=== PATIENT | male | born 1960 | race Caucasian/White ===

== ENCOUNTER → 2016-09-30 | Outpatient (CLI) | payer OTHER, MEDICAID ==
[2014-12-12 04:53] VITALS: BP 84/53
--- NOTE | 2016-09-30 12:36 | US ---
HISTORY: Abnormal liver function tests Study: Right upper quadrant ultrasound Comparison: None Technique: Multiple grayscale sonographic images were obtained. Findings: The liver was normal in size and configuration and without cysts, masses, or biliary ductal dilatati on. Gallstones are present within the gallbladder. Gallbladder wall thickness was normal. The common duct measured 4.4 millimeters. The right kidney measured 8.9 x 6.7 by 5.1 centimeters and demonstra riri no solid masses, hydronephrosis, stones, or perinephric fluid collections. The head and body of the pancreas appeared normal. The tail was obscured by overlying bowel gas. IMPRESSION: Cholelithiasis without evidence for cholecystitis Reported By:
== END ==
LOC: RAD 09:30
PROVIDERS: ATTEND Nurse Practitioner Family
DX: R94.5 Abnormal results of liver function studies (principal)
CPT/HCPCS: 76705

== ENCOUNTER → 2017-05-25 | Outpatient (CLI) | payer OTHER, MEDICAID ==
[2014-12-12 04:53] VITALS: BP 84/53
--- NOTE | 2017-05-25 15:34 | RAD ---
Examination: Left knee, two views History: Lower leg pain Findings: AP and lateral views demonstrate narrowing of medial greater than lateral compartments. No fracture or bone destruction. There is a synovial effusion. Impression: Osteoarthritis; synovial effusion. Reported By:
--- NOTE | 2017-05-25 15:39 | RAD ---
History: Chronic lower leg pain Study: Left ankle two views Findings: AP view of the left ankle includes most of the leg with lateral view of the ankle also prov ided. There is normal alignment at the ankle joint. There is mild irregularity of the distal fibula w ith no acute fractures seen. There is mild soft tissue swelling laterally. Impression: Soft tissue swelling with no acute osseous abnormality. Reported By:
--- NOTE | 2017-05-25 15:41 | RAD ---
History: Chronic neck pain Study: Cervical spine two views Findings: AP, lateral, odontoid and swimmer's views of the cervical spine are obtained. Lateral views only demonstrate the upper 4 vertebral bodies with an inadequate swimmer's view present. There is no prevertebral soft tissue swelling. There are mild degenerative changes at the odontoid axial joint. The maxilla is edentulous. Impression: Incomplete evaluation of the lower cervical spine. Reported By:
== END ==
LOC: RAD 13:25
PROVIDERS: ATTEND Nurse Practitioner Family
DX: M25.562 Pain in left knee (principal); W19.XXXA Unspecified fall, initial encounter; M79.89 Other specified soft tissue disorders; M17.12 Unilateral primary osteoarthritis, left knee
CPT/HCPCS: 72040; 73560; 73590

== ENCOUNTER 2018-07-31 12:20 | Observation (INO) ==
--- NOTE | 2018-07-31 13:12 | CT ---
CT of the head without contrast Indication: Weakness Comparison: CT of the head done October 15, 2017 Technique: 5 mm axial images through the brain was obtained with coronal and sagittal reformats generated from the original data set. Findings: There is no intracranial hemorrhage, parenchymal changes to suggest recent ischemia. There is mild microangiopathy. The ventricles and extra-axial spaces are normal. The globes, sella posterior fossa are unremarkable. The visualized paranasal sinuses and mastoid air cells are clear bilaterally. Conclusion: No acute intracranial process. Mild microangiopathy. Reported By:
[2018-07-31 13:34] LABS: BASOPHILS # (AUTO) 0.1 X10^3/uL (0.0-0.1); EOSINOPHILS # (AUTO) 0.4 x10^3/uL (0.0-0.2); EOSINOPHILS % (AUTO) 5.1 % (0.9-2.9); HEMATOCRIT 35.8 % (42.0-54.0); LYMPHOCYTES # (AUTO) 2.1 X10^3/uL (1.3-2.9); LYMPHOCYTES % (AUTO) 24.6 % (21.0-51.0); MEAN CORPUSCULAR HEMOGLOBIN 31.4 pg (27.0-34.0); MEAN CORPUSCULAR HGB CONC 33.6 g/dL (33.0-35.0); MEAN CORPUSCULAR VOLUME 93.4 fL (80.0-100.0); MEAN PLATELET VOLUME 6.8 fL (7.4-11.0); MONOCYTES # (AUTO) 0.6 x10^3/uL (0.3-0.8); MONOCYTES % (AUTO) 7.1 % (0.0-13.0); NEUTROPHILS # (AUTO) 5.4 x10^3/uL (2.2-4.8); NEUTROPHILS % (AUTO) 62.2 % (42.0-75.0); PLATELET COUNT 314 X10^3/uL (150.0-450.0); RED BLOOD COUNT 3.83 X10^6/uL (4.7-6.0); RED CELL DISTRIBUTION WIDTH 14.4 % (11.6-16.5); WHITE BLOOD COUNT 8.7 X10^3/uL (3.6-10.0)
--- NOTE | 2018-07-31 13:40 | DR.DIZZY ---
HPI Time seen Time Seen by Provider: 07/31/18 13:21 PCP Primary Care Physician: ROLY SHAH Complaint Chief Complaint Doctor Comments: patient admits to falling at 1600 on yesterday upon getting up he noticed that he was weak on his left side. Today he came in for his weakness and evaluation Chief Complaint:: PT STATES, "i HAD A STROKE AROUND 4PM YESTERDAY" PT STATES THAT HE BECAME SUDDENLY WEAK YESTERDAY AFTERNOON FELL AND HIT HIS HEAD. SINCE THEN HE C/O LEFT SIDED WEAKNESS. Source History Provided: Patient Mode of Arrival Mode of Arrival: Ambulatory Timing Onset of Chief Complaint: 07/31/18 Context Stroke Symptoms: None PMH PMH Past Medical History: Yes Past Medical History: CVA and [place] Past Medical History Comment: AFIB, RSDS Past Surgical History: Yes Past Surgical History Comment: RIGHT PAROTID GLAND REMOVED Family History History of Family Medical Conditions: No Social History Does patient currently use any type of tobacco product: No Have you used tobacco products in the last 12 months: No Type of Tobacco Use: None Does any household member use tobacco: No Alcohol Use: None Do you use any recreational Drugs:: No Lives With: Alone Lives Where: Home infectious screening In the last 2 months have you had wt loss of >10#?: NO Have you had fever, night sweats or hemotysis?: No Have you traveled outside the country in the last 6 months?: No Isolation: Standard PE Vital Signs Vitals: Temperature 98.2 F Pulse Rate [Left Radial] 53 Pulse Rate 57 Respiratory Rate 20 Blood Pressure [Left Arm] 120/82 Blood Pressure [Right Arm] 136/73 Blood Pressure 134/65 O2 Sat by Pulse Oximetry 100 General Limitations: No Limitations General Appearance: Alert and In No Apparent Distress Head Head Exam: Normal Inspection, Atraumatic and Normocephalic Eyes Eye exam: Normal Appearance, PERRL and EOMI Pupils: Regular, Round: Bilateral Sclera/Conjunctival: Normal Inspection: Bilateral Anterior Chamber: Normal Inspection: Bilateral Posterior Chamber: Deferred: Bilateral ENT ENT Exam: Normal Exam, Normal Oropharynx and Normal External Ear Exam Neck Neck Exam: Normal Inspection and Full ROM Chest Chest Inspection: Normal Inspection and Symmetric Chest Wall Rise Respiratory Respiratory Exam: Normal Lung Sounds Bilat Respiratory Exam: Bilateral: Clear to Auscultation Cardiovascular Cardiovascular Exam: Regular Rate and Normal Rhythm Abdominal Exam Abdominal Exam: Normal Inspection, Normal Bowel Sounds and Soft Rectal Rectal Exam: Deferred Extremeties Extremities Exam: Normal Inspection and Full ROM Back Back Exam: Normal Inspection Neurologic Neurological Exam: Alert, Oriented X3 and CN II-XII Intact Speech: Expressive Aphasia (minimal defect in speech) Cranial Nerve Exam: EOM Function (II, III, IV, ): Normal Motor Strength - LUE: 3/5 Motor Strength - RUE: 4/5 Motor Strength - LLE: 3/5 Psychiatric Psychiatric Exam: Normal Affect and Normal Mood Skin Skin Exam: Warm, Dry, Intact and Normal Color COURSE Treatment Treatment: CT Brain. NS, Observation Consultation Called: 14:50 Consultation Comments: Dr. Parekh agreed to admit for further evaluation and treatment ROR Labs Reviewed Laboratory Results Reviewed?: Yes Result Diagrams: 07/31/18 13:20 07/31/18 13:20 Laboratory: WBC 8.7 X10^3/uL (3.6-10.0) 07/31/18 13:20 RBC 3.83 X10^6/uL (4.7-6.0) L 07/31/18 13:20 Hgb 12.0 g/dL (13.5-18.0) L 07/31/18 13:20 Hct 35.8 % (42.0-54.0) L 07/31/18 13:20 MCV 93.4 fL (80.0-100.0) 07/31/18 13:20 MCH 31.4 pg (27.0-34.0) 07/31/18 13:20 MCHC 33.6 g/dL (33.0-35.0) 07/31/18 13:20 RDW 14.4 % (11.6-16.5) 07/31/18 13:20 Plt Count 314 X10^3/uL (150.0-450.0) 07/31/18 13:20 MPV 6.8 fL (7.4-11.0) L 07/31/18 13:20 Neut % (Auto) 62.2 % (42.0-75.0) 07/31/18 13:20 Lymph % (Auto) 24.6 % (21.0-51.0) 07/31/18 13:20 [place] % (Auto) 7.1 % (0.0-13.0) 07/31/18 13:20 Eos % (Auto) 5.1 % (0.9-2.9) H 07/31/18 13:20 Baso % (Auto) 1.0 % (0.2-1.0) 07/31/18 13:20 Neut # (Auto) 5.4 x10^3/uL (2.2-4.8) H 07/31/18 13:20 Lymph # (Auto) 2.1 X10^3/uL (1.3-2.9) 07/31/18 13:20 [place] # (Auto) 0.6 x10^3/uL (0.3-0.8) 07/31/18 13:20 Eos # (Auto) 0.4 x10^3/uL (0.0-0.2) H 07/31/18 13:20 Baso # (Auto) 0.1 X10^3/uL (0.0-0.1) 07/31/18 13:20 Absolute Nucleated RBC 0.0 /100WBC 07/31/18 13:20 INR Target Range - 07/31/18 13:20 INR 1.03 (0.8-1.3) 07/31/18 13:20 APTT 28.3 SECONDS (22.9-36.5) 07/31/18 13:20 PTT Comment - 07/31/18 13:20 Sodium 141 mmol/L (136-145) 07/31/18 13:20 Corrected Sodium TNP 07/31/18 13:20 Potassium 4.1 mmol/L (3.5-5.1) 07/31/18 13:20 Chloride 105 mmol/L (98-107) 07/31/18 13:20 Carbon Dioxide 24.2 mmol/L (21-32) 07/31/18 13:20 BUN 58 mg/dL (7-18) H 07/31/18 13:20 Creatinine 2.28 mg/dL (0.70-1.30) H 07/31/18 13:20 Est GFR (MDRD) Af Amer 38 (>60) L 07/31/18 13:20 Est GFR (MDRD) Non-Af 31 (>60) L 07/31/18 13:20 Glucose 100 mg/dL (65-99) H 07/31/18 13:20 Calcium 9.6 mg/dL (8.5-10.1) 07/31/18 13:20 Corrected Calcium TNP 07/31/18 13:20 Total Bilirubin 0.40 mg/dL (0.2-1.0) 07/31/18 13:20 AST 18 Units/L (15-37) 07/31/18 13:20 ALT 30 Units/L (12-78) 07/31/18 13:20 Alkaline Phosphatase 111 Units/L (46-116) 07/31/18 13:20 Creatine Kinase 162 Units/L (39-308) 07/31/18 13:20 CK-MB (CK-2) 2.8 ng/mL (0-4.0) 07/31/18 13:20 CK/CKMB % Calc 1.7 % (<4) 07/31/18 13:20 Troponin I < 0.02 ng/mL (0-1.5) 07/31/18 13:20 Total Protein 7.6 g/dL (6.4-8.2) 07/31/18 13:20 Albumin 3.5 g/dL (3.4-5.0) 07/31/18 13:20 Globulin 4.1 g/dL (2.5-4.5) 07/31/18 13:20 Albumin/Globulin Ratio 0.9 Ratio (1.1-2.1) L 07/31/18 13:20 Specimen Type Clean catch urine 07/31/18 16:15 Urine Color Yellow (YELLOW) 07/31/18 16:15 Urine Appearance Clear (CLEAR) 07/31/18 16:15 Urine pH 5.0 (5.0 - 8.0) 07/31/18 16:15 Ur Specific [place] 1.020 (1.000-1.030) 07/31/18 16:15 Urine Protein 1+ (NEGATIVE) 07/31/18 16:15 Urine Glucose (UA) Negative (NEGATIVE) 07/31/18 16:15 Urine Ketones Negative (NEGATIVE) 07/31/18 16:15 Urine Occult Blood Negative (NEGATIVE) 07/31/18 16:15 Urine Nitrite Negative (NEGATIVE) 07/31/18 16:15 Urine Bilirubin Negative (NEGATIVE) 07/31/18 16:15 Urine Urobilinogen Normal (NORMAL) 07/31/18 16:15 Ur Leukocyte Esterase Negative (NEGATIVE) 07/31/18 16:15 Other Results Comments: CT Head: There is no intracranial hemorrhage, parenchymal changes to suggest recent ischemia. There is mild microangiopathy. The ventricles and extra axial spaces are normal. The globes, sella posterior fossa are unremarkable. The visualized paranasal sinuses and mastoid are cells are clear bilaterally. Conclusion. No acute intracranial process Mild microangiopathy. XRAY XRAY Interpreted by: Radiologist Diagnosis Discharge Problem: Acute prerenal failure, Acute left-sided weakness Syncope Qualifiers: Syncope type: unspecified Qualified Code(s): R55 - Syncope and collapse ADDITIONAL NOTES Additional Notes Additional Notes: Patient admitted for further evaluation and treatment
[2018-07-31 13:55] LABS: BLOOD UREA NITROGEN 58 mg/dL (7-18); CALCIUM 9.6 mg/dL (8.5-10.1); CARBON DIOXIDE 24.2 mmol/L (21-32); CHLORIDE 105 mmol/L (98-107); CREATININE 2.28 mg/dL (0.70-1.30); SODIUM 141 mmol/L (136-145); TROPONIN I < 0.02 ng/mL (0-1.5); eGFR NON BLACK RACES 31 (>60)
[2018-07-31 14:07] LABS: ALANINE AMINOTRANSFERASE 30 Units/L (12-78); ALBUMIN 3.5 g/dL (3.4-5.0); ALKALINE PHOSPHATASE 111 Units/L (46-116); ASPARTATE AMINO TRANSFERASE 18 Units/L (15-37); CKMB % 1.7 % (<4); CREATINE KINASE 162 Units/L (39-308); CREATINE KINASE MB 2.8 ng/mL (0-4.0); TOTAL PROTEIN 7.6 g/dL (6.4-8.2)
[2018-07-31] MEDS ORDERED: NS 1000 ML 1,000 ML IV ONE (15:33)
[2018-07-31] MEDS ORDERED: NS 1000 ML 1,000 ML IV SCH (16:00)
[2018-07-31 16:44] VITALS: BMI 34.2
[2018-07-31 17:16] LABS: APPEARANCE,URINE CLEAR (CLEAR); BILIRUBIN,URINE NEGATIVE (NEGATIVE); BLOOD/HEMOGLOBIN,URINE NEGATIVE (NEGATIVE); COLOR,URINE YELLOW (YELLOW); GLUCOSE, URINE NEGATIVE (NEGATIVE); KETONES,URINE NEGATIVE (NEGATIVE); LEUKOCYTE ESTERASE ,URINE NEGATIVE (NEGATIVE); NITRITES,URINE NEGATIVE (NEGATIVE); PROTEIN,URINE 1+ (NEGATIVE); UROBILINOGEN,URINE NORMAL (NORMAL)
[2018-07-31 17:45] LABS: BACTERIA,URINE NEGATIVE /HPF (NEGATIVE); RBC,URINE NONE SEEN /HPF (NONE SEEN); SQUAMOUS EPITHELIAL CELL,UR RARE /HPF (NEGATIVE)
[2018-07-31] MEDS: NS 1000 ML 1,000 ML IV SCH (22:15)
[2018-08-01 06:32] LABS: BASOPHILS # (AUTO) 0.1 X10^3/uL (0.0-0.1); BASOPHILS % (AUTO) 0.8 % (0.2-1.0); EOSINOPHILS # (AUTO) 0.4 x10^3/uL (0.0-0.2); EOSINOPHILS % (AUTO) 3.9 % (0.9-2.9); HEMOGLOBIN 11.9 g/dL (13.5-18.0); LYMPHOCYTES # (AUTO) 2.1 X10^3/uL (1.3-2.9); LYMPHOCYTES % (AUTO) 23.2 % (21.0-51.0); MEAN CORPUSCULAR HEMOGLOBIN 31.9 pg (27.0-34.0); MEAN CORPUSCULAR VOLUME 93.8 fL (80.0-100.0); MEAN PLATELET VOLUME 7.5 fL (7.4-11.0); MONOCYTES # (AUTO) 0.6 x10^3/uL (0.3-0.8); MONOCYTES % (AUTO) 7.1 % (0.0-13.0); NEUTROPHILS # (AUTO) 5.9 x10^3/uL (2.2-4.8); PLATELET COUNT 262 X10^3/uL (150.0-450.0); RED BLOOD COUNT 3.73 X10^6/uL (4.7-6.0); RED CELL DISTRIBUTION WIDTH 14.5 % (11.6-16.5)
[2018-08-01 06:43] LABS: ALANINE AMINOTRANSFERASE 30 Units/L (12-78); ALBUMIN 3.1 g/dL (3.4-5.0); ALKALINE PHOSPHATASE 105 Units/L (46-116); ASPARTATE AMINO TRANSFERASE 22 Units/L (15-37); BLOOD UREA NITROGEN 48 mg/dL (7-18); CALCIUM 9.2 mg/dL (8.5-10.1); CARBON DIOXIDE 22.3 mmol/L (21-32); CHLORIDE 108 mmol/L (98-107); COR CA(FOR HYPOALB) 9.9 mg/dL (8.5-10.1); CREATININE 2.09 mg/dL (0.70-1.30); SODIUM 142 mmol/L (136-145); TOTAL PROTEIN 7.2 g/dL (6.4-8.2); eGFR NON BLACK RACES 35 (>60)
[2018-08-01 07:35] LABS: PLATELET MORPHOLOGY COMMENT NORMAL (NORMAL)
[2018-08-01] MEDS ORDERED: NS 1000 ML 1,000 ML ONE (13:28)
[2018-08-01] MEDS: NS 1000 ML 1,000 ML IV SCH (13:35)
[2018-08-01] MEDS ORDERED: NS 250 ML IV 250 ML IV ONE (13:47)
[2018-08-01 16:47] VITALS: BP 138/74
[2018-08-01 17:00] LABS: ALANINE AMINOTRANSFERASE 25 Units/L (12-78); ALKALINE PHOSPHATASE 104 Units/L (46-116); ASPARTATE AMINO TRANSFERASE 23 Units/L (15-37); BLOOD UREA NITROGEN 41 mg/dL (7-18); CALCIUM 9.3 mg/dL (8.5-10.1); CARBON DIOXIDE 21.2 mmol/L (21-32); CHLORIDE 109 mmol/L (98-107); COR CA(FOR HYPOALB) 10.1 mg/dL (8.5-10.1); CREATININE 1.91 mg/dL (0.70-1.30); SODIUM 142 mmol/L (136-145); eGFR NON BLACK RACES 38 (>60)
--- NOTE | 2018-08-01 18:20 | VAS ---
CAROTID ULTRASOUND CLINICAL INDICATION: TIA PROCEDURE: Pulsed wave and color-flow duplex imaging was utilized to evaluate the extracranial carotid arteries. COMPARISON: None FINDINGS: Right carotid: Plaque at the bifurcation. No hemodynamically significant stenosis involving the right carotid artery. The velocities are as follows: Distal CCA peak systolic velocity 66 cm/sec, ICA peak systolic velocity 61 cm/sec. Flow within the right ECA is directed antegrade. Vertebral artery not identified. ICA/CCA ratio: 0.9 Left carotid: Plaque at the bifurcation. No hemodynamically significant stenosis involving the left carotid artery. The velocities are as follows: Distal CCA peak systolic velocity 49 cm/sec, ICA peak systolic velocity 88 cm/sec. Flow within the left ECA is directed antegrade. Vertebral artery not identified. ICA/CCA ratio: 1.8 IMPRESSION: 1. No hemodynamically significant stenosis involving either the right or left ICA. 2. Normal peak systolic velocity corresponds to a less than 50% diameter stenosis of the right ICA. 3. Normal peak systolic velocity corresponds to a less than 50% diameter stenosis of the left ICA. 4. Vertebral arteries were not seen. Pathology of the vertebral arteries can therefore not be excluded. Reported By:
== END 2018-08-01 19:40 | disposition home or self-care (01) ==
LOC: MED/SURG 12:22 → ER 12:22 → MED/SURG 15:50
PROVIDERS: ADMIT Internal Medicine; ATTEND Internal Medicine
DX: R55 Syncope and collapse; R94.4 Abnormal results of kidney function studies; Z91.81 History of falling; N17.8 Other acute kidney failure; R94.31 Abnormal electrocardiogram [ECG] [EKG]; E86.0 Dehydration; R53.1 Weakness; E78.2 Mixed hyperlipidemia; I25.10 Atherosclerotic heart disease of native coronary artery without angina pectoris
CPT/HCPCS: 36415; 70450; 80053; 81001; 82550; 82553; 84484; 85025; 85610; 85730; 93005; 93880; 94760; 96365; 96367; 99284; A4216; G0378; J7030; J7050

== ENCOUNTER 2019-01-09 11:03 | Inpatient (IN) ==
[2019-01-09 11:34] VITALS: BMI 37.8
--- NOTE | 2019-01-09 12:26 | DR.GENAD ---
HPI Time Seen Time Seen by Provider: 01/09/19 12:26 PCP Primary Care Physician: JACKIE HPI Comment HPI Comment: PATIENT IS 58YR OLD WHITE MALE WITH INCREASING PAIN BOTH FEET AND SWELLING, REDNESS RIGHT FOOT. FELL FEW WEEKS AGO AND INJURED COCCYX. INCREASE PAIN FROM INJURED AREA TODAY. PATIENT HAVE PREVIOUS CVA. PAIN SHARP 6/10 WORSE WITH MOVEMENT. Complaint/Symptoms Chief Complaint Doctors Comments: PAIN TAIL BONE DUE TO INJURY AND BILATERAL FOOT PAIN. Chief Complaint:: DIFFICULTY WALKING, MARIN LEG PAIN Nurses notes reviewed Nurses Notes Review: Yes Source History Provided: Patient Mode of Arrival Mode of Arrival: Wheelchair Timing Onset of Chief Complaint: 01/09/19 Came on: Suddenly Duration Duration: Constant Duration: Hours Severity Severity: Moderate Modifying Factors Worsens:: MOVEMENT. Improves:: REST. PMH PMH Past Medical History: Yes Past Medical History: CVA and [place] Past Surgical History: Yes Past Surgical History Comment: HEART CATH(NEG); FACIAL RECONSTRUCTION 5TH FACIAL NERVE Family History History of Family Medical Conditions: Yes Family Medical History: Hypertension Social History Does patient currently use any type of tobacco product: No Have you used tobacco products in the last 12 months: No Type of Tobacco Use: None Do you use any recreational Drugs:: No Lives With: Alone Lives Where: Home infectious screening In the last 2 months have you had wt loss of >10#?: NO Have you had fever, night sweats or hemotysis?: No Have you traveled outside the country in the last 6 months?: No Isolation: Standard ROS Review of Systems Constitutional: See HPI, Weakness and Fatigue; negative Fever Eyes: No Symptoms Reported and See HPI ENTM: No Symptoms Reported and See HPI; negative Ear Pain, Nose Discharge, Nose Congestion and Throat Pain Respiratoy: No Symptoms Reported and See HPI; negative Short of Breath Cardiovascular: See HPI and Edema; negative Chest Pain and Palpitations Gastrointestinal/Abdominal: No Symptoms Reported and See HPI; negative Abdominal Pain, Constipation, Diarrhea, Nausea and Vomiting Genitourinary: No Symptoms Reported and See HPI; negative Dysuria, Frequency and Hematuria Neurological: No Symptoms Reported and Weakness; negative Headache and Dizziness Musculoskeletal: See HPI, Back Pain (PAIN COCCYX.), Muscle Pain and Leg Integumentary: No Symptoms Reported Hematologic/Lymphatic: No Symptoms Reported and See HPI Endocrine: No Symptoms Reported and See HPI Psychiatric: No Symptoms Reported and See HPI All Other Systems: Reviewed and Negative PE Vital Signs Vitals: Temperature 98.1 F Pulse Rate [Left Brachial] 68 Pulse Rate 80 Respiratory Rate 18 Blood Pressure [Left Arm] 136/68 Blood Pressure [Right Arm] 118/65 Blood Pressure 114/69 O2 Sat by Pulse Oximetry 100 General Limitations: No Limitations General Appearance: Alert and In No Apparent Distress Head Head Exam: Normal Inspection and Atraumatic Eyes Eye exam: Normal Appearance, PERRL and EOMI; negative Scleral Icterus and Conjunctival Injection ENT ENT Exam: Normal Exam, Normal Oropharynx, Normal External Ear Exam and TM's Normal Bilaterally External Ear Exam: Normal External Inspection; negative Mastoid Tenderness, Pain with Movement and External Tenderness TM/Canal Exam: Bilateral: Normal Nose Exam: Normal Nose Exam; negative Sinus Tenderness and Septal Hematoma Mouth Exam: Normal Inspection; negative Trismus, Lip Swelling and Tongue Swelling Throat Exam: Normal Inspection; negative Tonsillar Erythema, Tonsillomegaly and Tonsillar Exudate Neck Neck Exam: Normal Inspection and Trachea Midline; negative Tenderness and Lymphadenopathy Chest Chest Inspection: Normal Inspection and Symmetric Chest Wall Rise; negative Tenderness Respiratory Respiratory Exam: Normal Lung Sounds Bilat; negative Accessory Muscle Use, Chest Wall Tenderness and Respiratory Distress Respiratory Exam: Bilateral: Clear to Auscultation Cardiovascular Cardiovascular Exam: Regular Rate, Normal Rhythm and Normal Heart Sounds; negative Systolic Murmur and Diastolic Murmur Abdominal Exam Abdominal Exam: Normal Inspection, Normal Bowel Sounds and Soft; negative Ten derness Extremities Extremities Exam: Normal Inspection, Full ROM, Tenderness (LEGS TENDER AND RIGHT LEG RED.), Normal Capillary Refill and Edema; negative Calf Tenderness Back Back Exam: Normal Inspection, Tenderness (LOWER BACK TENDERNESS.) and Vertebral Tenderness Neurologic Neurological Exam: Alert and Oriented X3; negative Motor Sensory Deficit Psychiatric Psychiatric Exam: Normal Affect and Normal Mood Skin Skin Exam: Warm, Dry, Intact and Normal Color MDM Differential Diagnosis Differential Diagnosis: SPRAIN/FRACTURE LEGS. COCCYX, DVT, CELLULITIS COURSE Treatment Treatment: SEE ORDERS. 16:25 VANCOMUCIN 1GM IVPB AND NS 1L IV BOLUS. 19:41 NS IN 29MEQ KCL IV. Consultation Consultation Comments: DISCUSSED PATIENT WITH DR. GALLARDO AND HE WILL ADMIT. ORDERS DONE. Education/Counseling Education/Counseling: Patient Educated On: Diagnosis ROR Labs Reviewed Laboratory Results Reviewed?: Yes Result Diagrams: 01/15/19 05:57 01/15/19 05:57 Laboratory: 01/12/19 13:37 Blood Blood Culture - Final 01/12/19 13:32 Blood Blood Culture - Final WBC 20.4 X10^3/uL (3.6-10.0) H 01/15/19 05:57 RBC 4.00 X10^6/uL (4.7-6.0) L 01/15/19 05:57 Hgb 12.7 g/dL (13.5-18.0) L 01/15/19 05:57 Hct 37.6 % (42.0-54.0) L 01/15/19 05:57 MCV 93.9 fL (80.0-100.0) 01/15/19 05:57 MCH 31.6 pg (27.0-34.0) 01/15/19 05:57 MCHC 33.7 g/dL (33.0-35.0) 01/15/19 05:57 RDW 15.4 % (11.6-16.5) 01/15/19 05:57 Plt Count 461 X10^3/uL (150.0-450.0) H 01/15/19 05:57 Plt Count Comment Adequate (ADEQUATE) 01/14/19 05:43 MPV 6.7 fL (7.4-11.0) L 01/15/19 05:57 Neut % (Auto) 80.0 % (42.0-75.0) H 01/15/19 05:57 Lymph % (Auto) 14.3 % (21.0-51.0) L 01/15/19 05:57 [place] % (Auto) 5.4 % (0.0-13.0) 01/15/19 05:57 Eos % (Auto) 0.1 % (0.9-2.9) L 01/15/19 05:57 Baso % (Auto) 0.2 % (0.2-1.0) 01/15/19 05:57 Neut # (Auto) 16.3 x10^3/uL (2.2-4.8) H 01/15/19 05:57 Lymph # (Auto) 2.9 X10^3/uL (1.3-2.9) 01/15/19 05:57 [place] # (Auto) 1.1 x10^3/uL (0.3-0.8) H 01/15/19 05:57 Eos # (Auto) 0.0 x10^3/uL (0.0-0.2) 01/15/19 05:57 Baso # (Auto) 0.0 X10^3/uL (0.0-0.1) 01/15/19 05:57 Absolute Nucleated RBC 0.0 /100WBC 01/15/19 05:57 Total Counted 100 01/14/19 05:43 Neutrophils % (Manual) 86 % (39-76) H 01/14/19 05:43 Band Neutrophils % 4 % (0-10) 01/14/19 05:43 Lymphocytes % (Manual) 8 % (13-43) L 01/14/19 05:43 Monocytes % (Manual) 2 % (4-9) L 01/14/19 05:43 Plt Morphology Comment Normal (NORMAL) 01/14/19 05:43 RBC Morphology Normal (NORMAL) 01/14/19 05:43 Sodium 132 mmol/L (136-145) L 01/15/19 05:57 Corrected Sodium 132 mmol/L (136-145) L 01/15/19 05:57 Potassium 4.5 mmol/L (3.5-5.1) 01/15/19 05:57 Chloride 96 mmol/L (98-107) L 01/15/19 05:57 Carbon Dioxide 22.1 mmol/L (21-32) 01/15/19 05:57 BUN 18 mg/dL (7-18) 01/15/19 05:57 Creatinine 1.61 mg/dL (0.70-1.30) H 01/15/19 05:57 Est GFR (MDRD) Af Amer 57 (>60) L 01/15/19 05:57 Est GFR (MDRD) Non-Af 47 (>60) L 01/15/19 05:57 Glucose 120 mg/dL (65-99) H 01/15/19 05:57 Uric Acid 9.9 mg/dL (3.5-7.2) H 01/10/19 14:56 Calcium 8.9 mg/dL (8.5-10.1) 01/15/19 05:57 Corrected Calcium 10.2 mg/dL (8.5-10.1) H 01/15/19 05:57 Magnesium 2.1 mg/dL (1.7-2.9) 01/14/19 05:43 Total Bilirubin 0.30 mg/dL (0.2-1.0) 01/15/19 05:57 AST 28 Units/L (15-37) 01/15/19 05:57 ALT 16 Units/L (12-78) 01/15/19 05:57 Alkaline Phosphatase 101 Units/L (46-116) 01/15/19 05:57 Total Protein 7.2 g/dL (6.4-8.2) 01/15/19 05:57 Albumin 2.4 g/dL (3.4-5.0) L 01/15/19 05:57 Globulin 4.8 g/dL (2.5-4.5) H 01/15/19 05:57 Albumin/Globulin Ratio 0.5 Ratio (1.1-2.1) L 01/15/19 05:57 Specimen Type Clean catch urine 01/10/19 17:00 Urine Color Yellow (YELLOW) 01/10/19 17:00 Urine Appearance Clear (CLEAR) 01/10/19 17:00 Urine pH 7.0 (5.0 - 8.0) 01/10/19 17:00 Ur Specific [place] 1.010 (1.000-1.030) 01/10/19 17:00 Urine Protein Negative (NEGATIVE) 01/10/19 17:00 Urine Glucose (UA) Negative (NEGATIVE) 01/10/19 17:00 Urine Ketones Negative (NEGATIVE) 01/10/19 17:00 Urine Occult Blood Negative (NEGATIVE) 01/10/19 17:00 Urine Nitrite Negative (NEGATIVE) 01/10/19 17:00 Urine Bilirubin Negative (NEGATIVE) 01/10/19 17:00 Urine Urobilinogen Normal (NORMAL) 01/10/19 17:00 Ur Leukocyte Esterase Negative (NEGATIVE) 01/10/19 17:00 Stool Description 50g,brown,semiformed 01/13/19 17:09 Stl Occult Blood (IFOB) Negative (NEGATIVE) 01/13/19 17:09 Stool for White Cells Negative (NEGATIVE) 01/13/19 17:09 Vancomycin Trough 21.3 ug/mL (15-20) H* 09/06/19 20:08 XRAY XRAY Interpreted by: Radiologist XRAY Findings: REPORT NOTED AND DISCUSSED WITH PATIENT, XRAYS AND US. Opioid Opioid Risk Tool Age (Salazar box if 16-45): No Total: 0 Total Score Risk Category: Low Risk Copyright: Cm TAVAREZ predicting aberrant behaviors Diagnosis Discharge Problem: Contusion of multiple sites Cellulitis Qualifiers: Site of cellulitis: extremity Site of cellulitis of extremity: lower extremity Laterality: unspecified laterality Qualified Code(s): L03.119 - Cellulitis of unspecified part of limb Coccyx sprain Qualifiers: Encounter type: initial encounter Qualified Code(s): S33.8XXA - Sprain of other parts of lumbar spine and pelvis, initial encounter Instructions Forms: Excuse From Work
[2019-01-09 13:09] LABS: BASOPHILS # (AUTO) 0.1 X10^3/uL (0.0-0.1); BASOPHILS % (AUTO) 0.3 % (0.2-1.0); EOSINOPHILS # (AUTO) 0.1 x10^3/uL (0.0-0.2); EOSINOPHILS % (AUTO) 0.6 % (0.9-2.9); HEMATOCRIT 37.8 % (42.0-54.0); HEMOGLOBIN 13.1 g/dL (13.5-18.0); LYMPHOCYTES % (AUTO) 10.7 % (21.0-51.0); MEAN CORPUSCULAR HEMOGLOBIN 31.7 pg (27.0-34.0); MEAN CORPUSCULAR HGB CONC 34.7 g/dL (33.0-35.0); MEAN CORPUSCULAR VOLUME 91.2 fL (80.0-100.0); MEAN PLATELET VOLUME 6.6 fL (7.4-11.0); MONOCYTES % (AUTO) 5.7 % (0.0-13.0); NEUTROPHILS # (AUTO) 15.2 x10^3/uL (2.2-4.8); NEUTROPHILS % (AUTO) 82.7 % (42.0-75.0); PLATELET COUNT 304 X10^3/uL (150.0-450.0); RED BLOOD COUNT 4.14 X10^6/uL (4.7-6.0); RED CELL DISTRIBUTION WIDTH 15.1 % (11.6-16.5); WHITE BLOOD COUNT 18.4 X10^3/uL (3.6-10.0)
[2019-01-09 13:17] LABS: CALCIUM 8.6 mg/dL (8.5-10.1); CARBON DIOXIDE 27.6 mmol/L (21-32); CREATININE 1.86 mg/dL (0.70-1.30)
[2019-01-09 13:22] LABS: ALBUMIN 3.1 g/dL (3.4-5.0); COR CA(FOR HYPOALB) 9.3 mg/dL (8.5-10.1); TOTAL PROTEIN 7.8 g/dL (6.4-8.2)
[2019-01-09] MEDS: K-LYTE EFFERVESCENT PO SCH (13:31)
--- NOTE | 2019-01-09 14:31 | RAD ---
HISTORY: Left foot pain and swelling. Study: 3 nonweightbearing views of the left foot. Comparison: None. Findings: No acute cortical disruption or dislocation can be identified. No significant soft tissue swelling or injury can be seen. Diffuse osteopenia. Mild osteoarthritis of the 1st MTP joint. Calcaneal enthesophytes. IMPRESSION: No acute osseous abnormality. Reported By:
--- NOTE | 2019-01-09 14:32 | RAD ---
HISTORY: Right foot pain and swelling. Study: 3 nonweightbearing views of the right foot. Comparison: Right foot series dated March 21, 2015. Findings: No acute cortical disruption or dislocation can be identified. No significant soft tissue swelling or injury can be seen. Diffuse osteopenia. Mild osteoarthritis of the 1st MTP joint. Calcaneal enthesophytes. IMPRESSION: No acute osseous abnormality. Reported By:
--- NOTE | 2019-01-09 14:33 | RAD ---
HISTORY: Pelvic pain status post fall 1 week ago. Study: Two views of sacrum/coccyx. Comparison: None. Findings: No acute cortical disruption or dislocation can be identified. No significant soft tissue swelling or injury can be seen. Diffuse osteopenia. Mild osteoarthritis of the bilateral hips and visualized lumbosacral spine. IMPRESSION: No acute osseous abnormality. Reported By:
[2019-01-09] MEDS ORDERED: VANCOMYCIN HCL ONE (16:25)
[2019-01-09] MEDS ORDERED: NS 250 ML IV 250 ML ONE (16:25)
[2019-01-09] MEDS ORDERED: VANCOMYCIN HCL 1 G in D5W 250 ML IV 250 ML IV ONE (16:38)
[2019-01-09] MEDS ORDERED: NS + KCL 20 MEQ/L 1,000 ML ONE (19:41)
[2019-01-09] MEDS ORDERED: PHARMACY CONSULT - VANCOMYCIN XX SCH (20:00)
[2019-01-09] MEDS: NS + KCL 20 MEQ/L 1,000 ML IV SCH (20:53)
[2019-01-10 05:22] LABS: BASOPHILS # (AUTO) 0.1 X10^3/uL (0.0-0.1); BASOPHILS % (AUTO) 0.4 % (0.2-1.0); EOSINOPHILS # (AUTO) 0.1 x10^3/uL (0.0-0.2); EOSINOPHILS % (AUTO) 0.4 % (0.9-2.9); HEMOGLOBIN 12.1 g/dL (13.5-18.0); LYMPHOCYTES % (AUTO) 12.9 % (21.0-51.0); MEAN CORPUSCULAR HEMOGLOBIN 31.7 pg (27.0-34.0); MEAN CORPUSCULAR HGB CONC 34.6 g/dL (33.0-35.0); MEAN CORPUSCULAR VOLUME 91.5 fL (80.0-100.0); MEAN PLATELET VOLUME 7.3 fL (7.4-11.0); MONOCYTES % (AUTO) 6.4 % (0.0-13.0); NEUTROPHILS # (AUTO) 12.2 x10^3/uL (2.2-4.8); NEUTROPHILS % (AUTO) 79.9 % (42.0-75.0); PLATELET COUNT 256 X10^3/uL (150.0-450.0); RED BLOOD COUNT 3.83 X10^6/uL (4.7-6.0); RED CELL DISTRIBUTION WIDTH 15.6 % (11.6-16.5); WHITE BLOOD COUNT 15.3 X10^3/uL (3.6-10.0)
[2019-01-10 05:42] LABS: ALBUMIN 2.6 g/dL (3.4-5.0); CALCIUM 7.6 mg/dL (8.5-10.1); CARBON DIOXIDE 26.3 mmol/L (21-32); COR CA(FOR HYPOALB) 8.7 mg/dL (8.5-10.1); CREATININE 1.75 mg/dL (0.70-1.30)
[2019-01-10] MEDS ORDERED: K-RIDER 10 MEQ/NS 100 ML 10 MEQ/100 ML BAG IV PRN (05:50)
[2019-01-10] MEDS ORDERED: POTASSIUM CHL 40 MEQ/NS 0.45% 500 ML IV PRN (05:50)
[2019-01-10] MEDS ORDERED: POTASSIUM CHL 60 MEQ/NS 0.45% 500 ML IV PRN (05:50)
[2019-01-10] MEDS ORDERED: MAGNESIUM SULFATE 1 GRAM/100 mL PREMIX 1 GM/100 ML BAG IV PRN (05:50)
[2019-01-10] MEDS ORDERED: POTASSIUM CHLORIDE LIQ 20 MEQ UDC PO PRN (05:50)
[2019-01-10] MEDS ORDERED: K-DUR TAB 20 MEQ PO PRN (05:50)
[2019-01-10] MEDS ORDERED: KLOR-CON PO PRN (05:50)
[2019-01-10] MEDS ORDERED: MICRO K EXTEN CAP 10 MEQ PO PRN (05:50)
[2019-01-10] MEDS: NS + KCL 20 MEQ/L 1,000 ML IV SCH ×2 (05:55→10:05)
[2019-01-10] MEDS ORDERED: KLOR-CON PO ONE (05:58)
--- NOTE | 2019-01-10 07:57 | VAS ---
Lower extremity doppler sonogram Indication: Right leg swelling and redness Comparison: None available TECHNIQUE: Multiple grijalva scale and color flow Doppler images of the deep venous system were obtained of the right lower extremity. FINDINGS: The deep venous system of the right lower extremity was evaluated from the level of the common femoral vein through the popliteal vein. Normal color flow and augmentation can be observed. In addition, normal compression is seen throughout the deep venous system. IMPRESSION: 1. Negative for right lower extremity DVT. Reported By:
[2019-01-10] MEDS: VANCOMYCIN HCL 1 G in D5W 250 ML IV 250 ML IV SCH ×2 (08:20→20:46)
[2019-01-10] MEDS: BRILINTA PO SCH ×3 (08:35→20:46)
--- NOTE | 2019-01-10 09:42 | RAD ---
History: Coronary artery disease and COPD Study: Portable upright AP chest Comparison: December 12, 2014 Findings: There are mildly increased chronic interstitial lung markings without focal lung consolidation or atelectasis. The heart size is normal. The mediastinum is unremarkable. No significant bony abnormality is demonstrated. Impression: No evidence for acute cardiopulmonary disease Reported By:
[2019-01-10] MEDS: K-LYTE EFFERVESCENT PO SCH (09:52)
[2019-01-10] MEDS: NS + KCL 40 MEQ/L 1,000 ML IV SCH (10:52)
--- NOTE | 2019-01-10 15:47 | DR.H&P ---
H&P - History & Physical for Day of: H&P Date: 01/09/19 - Chief Complaint Chief Complaint: RIGHT FOOT, ANKLE CELLULITIS, FALL WITH LEG WEAKNESS - History of Present Illness History of Present Illness: 58 [facility] ER ADMISSION AFTER PRESENTING WITH CO FALL, LOWER LEG WEAKNESS, RIGHT ANKLE REDNESS, PAIN AND SWELLING. PT ALSO CO LEFT KNEE PAIN. PT STATES HE HASNT HAD ANY APPETITE. PT HAS PMH OF HTN, RENAL INSUFFICIENCY, CAD, OA, LISA. PT HAD LABS OBTAINED IN ER WITH HYPOKALEMIA AND ELEVATED WBC. PT ADMITTED FOR TREATMENT OF ACUTE ILLNESS. - Past Medical History Past Medical History: Anxiety, Arthritis, COPD, Coronary Artery Disease, CVA, GERD, Hypertension, NE, Renal Disease - Past Surgical History Surgical History: Other - Family History Family Medical History: Hypertension - Social History Does patient currently use any type of tobacco product: No Have you used tobacco products in the last 12 months: No Type of Tobacco Use: Cigarettes How many years tobacco product used: 5 Does any household member use tobacco: No Alcohol Use: None Drug Use: Prescription Drugs - Medications Home Medications: aspirin Allergy (Verified 01/09/19 16:24) CONTINUE taking the following medications NK 01/10/19 [History] - Review of Systems Constitutional: Weakness Eyes: No Symptoms Reported ENT: No Symptoms Reported Respiratory: No Symptoms Reported Cardiovascular: Edema Genitourinary: No Symptoms Reported Musculoskeletal: Back Pain, Leg Pain, Foot Pain Skin: Rash (REDNESS) Neurological: Weakness - Physical Exam Vital Signs: Temperature 98.7 F Pulse Rate [Left Brachial] 76 Pulse Rate 80 Respiratory Rate 20 Blood Pressure [Left Arm] 107/62 Blood Pressure [Right Arm] 136/73 Blood Pressure 114/69 O2 Sat by Pulse Oximetry 94 Oriented: Normal Eyes: Normal Ear: Normal Nose: Normal Throat: Normal Respiratory: RLL Diminished, LLL Diminished Cardiovascular: Normal, Edema (TRACE BILATERAL LOWER EXTREMITY EDEMA). negative: Murmur : Normal Auscultation: Bowel Sounds: Increased Palpation: Normal Tenderness: Normal Skin: Decreased Turgur, Red, Tender, Hot (RIGHT ANKLE ) Musculoskeletal: Left, Knee, Back:Lumbar, Swelling, Tender Psychiatric: Anxiety Affect: Anxious Speech Pattern: Clear, Appropriate - Assessment/Plan (1) Hypokalemia Status: Acute Plan: ADMIT, GENTLE IV HYDRATION WITH ELECTROLYTE REPLACEMENT. BP CONTROL, VERIFY HOME MEDICATION. STOOL STUDIES, CXR ON ADMISSION. XRAY RLE, BLOOD CULTURE. IV ATBX THERAPY, I & OS (2) Weakness Status: Acute (3) Cellulitis of right ankle Status: Acute (4) CAD (coronary artery disease) Status: Acute - Allergies Allergies/Adverse Reactions: Allergies Allergy/AdvReac Type Severity Reaction Status Date / Time aspirin Allergy Verified 01/09/19 16:24
[2019-01-10] MEDS: GENTAMICIN SULF (OPHTH) AFFEYE SCH ×2 (16:10→20:46)
[2019-01-10 17:09] LABS: BILIRUBIN,URINE NEGATIVE (NEGATIVE); BLOOD/HEMOGLOBIN,URINE NEGATIVE (NEGATIVE); GLUCOSE, URINE NEGATIVE (NEGATIVE); KETONES,URINE NEGATIVE (NEGATIVE); LEUKOCYTE ESTERASE ,URINE NEGATIVE (NEGATIVE); NITRITES,URINE NEGATIVE (NEGATIVE); PROTEIN,URINE NEGATIVE (NEGATIVE); UROBILINOGEN,URINE NORMAL (NORMAL)
[2019-01-10 17:10] LABS: APPEARANCE,URINE CLEAR (CLEAR); COLOR,URINE YELLOW (YELLOW)
[2019-01-10] MEDS: NORCO 5/325 MG TAB PO PRN (20:55)
[2019-01-11] MEDS: NS + KCL 40 MEQ/L 1,000 ML IV SCH ×3 (01:04→13:11)
[2019-01-11] MEDS: GENTAMICIN SULF (OPHTH) AFFEYE SCH ×4 (01:59→21:00)
[2019-01-11] MEDS: NORCO 5/325 MG TAB PO PRN ×2 (02:14→09:26)
[2019-01-11 05:20] LABS: BASOPHILS # (AUTO) 0.1 X10^3/uL (0.0-0.1); BASOPHILS % (AUTO) 0.5 % (0.2-1.0); EOSINOPHILS # (AUTO) 0.2 x10^3/uL (0.0-0.2); EOSINOPHILS % (AUTO) 1.1 % (0.9-2.9); HEMATOCRIT 33.9 % (42.0-54.0); HEMOGLOBIN 11.7 g/dL (13.5-18.0); LYMPHOCYTES # (AUTO) 2.3 X10^3/uL (1.3-2.9); LYMPHOCYTES % (AUTO) 15.7 % (21.0-51.0); MEAN CORPUSCULAR HEMOGLOBIN 31.7 pg (27.0-34.0); MEAN CORPUSCULAR HGB CONC 34.5 g/dL (33.0-35.0); MEAN CORPUSCULAR VOLUME 91.8 fL (80.0-100.0); MEAN PLATELET VOLUME 7.2 fL (7.4-11.0); MONOCYTES # (AUTO) 0.9 x10^3/uL (0.3-0.8); MONOCYTES % (AUTO) 6.2 % (0.0-13.0); NEUTROPHILS # (AUTO) 11.2 x10^3/uL (2.2-4.8); NEUTROPHILS % (AUTO) 76.5 % (42.0-75.0); PLATELET COUNT 262 X10^3/uL (150.0-450.0); RED BLOOD COUNT 3.69 X10^6/uL (4.7-6.0); RED CELL DISTRIBUTION WIDTH 15.6 % (11.6-16.5); WHITE BLOOD COUNT 14.6 X10^3/uL (3.6-10.0)
[2019-01-11 05:36] LABS: ALBUMIN 2.3 g/dL (3.4-5.0); CALCIUM 7.1 mg/dL (8.5-10.1); CARBON DIOXIDE 26.8 mmol/L (21-32); COR CA(FOR HYPOALB) 8.5 mg/dL (8.5-10.1); CREATININE 1.54 mg/dL (0.70-1.30); TOTAL PROTEIN 6.5 g/dL (6.4-8.2)
[2019-01-11] MEDS: K-LYTE EFFERVESCENT PO SCH (09:18)
[2019-01-11] MEDS: VANCOMYCIN HCL 1 G in D5W 250 ML IV 250 ML IV SCH ×2 (09:18→22:40)
[2019-01-11] MEDS: BRILINTA PO SCH ×2 (09:19→22:40)
[2019-01-11] MEDS: NORCO 10/325 TAB PO PRN ×3 (09:20→20:44)
--- NOTE | 2019-01-11 11:28 | RAD ---
HISTORY: Nontraumatic left knee pain and edema Study: Left knee two views Comparison: 05/25/2017 Findings: There is no evidence for fracture, lytic, or blastic lesion. No joint erosion or joint effusion is identified. No periarticular soft tissue abnormality is identified. IMPRESSION: No significant abnormality identified Reported By:
[2019-01-11] MEDS: ZYLOPRIM PO SCH (15:46)
[2019-01-11] MEDS ORDERED: PHARMACY COMMENT IV NR (20:30)
[2019-01-11 21:53] LABS: CREATININE 1.55 mg/dL (0.70-1.30); VANCOMYCIN,TROUGH 15.8 ug/mL (15-20)
[2019-01-12] MEDS: NS + KCL 40 MEQ/L 1,000 ML IV SCH ×3 (00:30→15:13)
[2019-01-12] MEDS: GENTAMICIN SULF (OPHTH) AFFEYE SCH ×4 (03:05→20:47)
[2019-01-12] MEDS: NORCO 10/325 TAB PO PRN ×3 (04:30→22:11)
[2019-01-12 05:30] LABS: BASOPHILS % (AUTO) 0.3 % (0.2-1.0); EOSINOPHILS # (AUTO) 0.1 x10^3/uL (0.0-0.2); EOSINOPHILS % (AUTO) 0.8 % (0.9-2.9); HEMATOCRIT 33.4 % (42.0-54.0); HEMOGLOBIN 11.4 g/dL (13.5-18.0); LYMPHOCYTES # (AUTO) 1.8 X10^3/uL (1.3-2.9); LYMPHOCYTES % (AUTO) 12.1 % (21.0-51.0); MEAN CORPUSCULAR HEMOGLOBIN 31.4 pg (27.0-34.0); MEAN CORPUSCULAR VOLUME 92.4 fL (80.0-100.0); MEAN PLATELET VOLUME 7.1 fL (7.4-11.0); MONOCYTES % (AUTO) 6.8 % (0.0-13.0); NEUTROPHILS # (AUTO) 12.2 x10^3/uL (2.2-4.8); PLATELET COUNT 275 X10^3/uL (150.0-450.0); RED BLOOD COUNT 3.62 X10^6/uL (4.7-6.0); RED CELL DISTRIBUTION WIDTH 15.4 % (11.6-16.5); WHITE BLOOD COUNT 15.2 X10^3/uL (3.6-10.0)
[2019-01-12 05:36] LABS: ALANINE AMINOTRANSFERASE 13 Units/L (12-78); ALBUMIN 2.3 g/dL (3.4-5.0); ALKALINE PHOSPHATASE 99 Units/L (46-116); ASPARTATE AMINO TRANSFERASE 16 Units/L (15-37); BLOOD UREA NITROGEN 9 mg/dL (7-18); CALCIUM 7.2 mg/dL (8.5-10.1); CARBON DIOXIDE 26.2 mmol/L (21-32); CHLORIDE 96 mmol/L (98-107); COR CA(FOR HYPOALB) 8.6 mg/dL (8.5-10.1); MAGNESIUM 1.5 mg/dL (1.7-2.9); SODIUM 133 mmol/L (136-145); TOTAL PROTEIN 6.6 g/dL (6.4-8.2); eGFR NON BLACK RACES 51 (>60)
[2019-01-12] MEDS: BRILINTA PO SCH ×3 (08:46→20:47)
[2019-01-12] MEDS: ZYLOPRIM PO SCH (08:46)
[2019-01-12] MEDS: K-LYTE EFFERVESCENT PO SCH (08:47)
[2019-01-12] MEDS: VANCOMYCIN HCL 1 G in D5W 250 ML IV 250 ML IV SCH ×2 (08:48→20:49)
[2019-01-12] MEDS: MAG-OX TAB PO SCH (18:22)
[2019-01-13] MEDS: NS + KCL 40 MEQ/L 1,000 ML IV SCH ×4 (00:30→19:36)
[2019-01-13] MEDS: GENTAMICIN SULF (OPHTH) AFFEYE SCH ×4 (02:34→21:03)
[2019-01-13 05:25] LABS: BASOPHILS # (AUTO) 0.1 X10^3/uL (0.0-0.1); BASOPHILS % (AUTO) 0.4 % (0.2-1.0); EOSINOPHILS # (AUTO) 0.3 x10^3/uL (0.0-0.2); EOSINOPHILS % (AUTO) 1.8 % (0.9-2.9); HEMATOCRIT 35.1 % (42.0-54.0); HEMOGLOBIN 12.3 g/dL (13.5-18.0); LYMPHOCYTES % (AUTO) 13.7 % (21.0-51.0); MEAN CORPUSCULAR HEMOGLOBIN 32.4 pg (27.0-34.0); MEAN CORPUSCULAR HGB CONC 35.1 g/dL (33.0-35.0); MEAN CORPUSCULAR VOLUME 92.2 fL (80.0-100.0); MEAN PLATELET VOLUME 6.8 fL (7.4-11.0); MONOCYTES # (AUTO) 0.7 x10^3/uL (0.3-0.8); NEUTROPHILS # (AUTO) 11.6 x10^3/uL (2.2-4.8); NEUTROPHILS % (AUTO) 79.1 % (42.0-75.0); PLATELET COUNT 292 X10^3/uL (150.0-450.0); RED BLOOD COUNT 3.81 X10^6/uL (4.7-6.0); RED CELL DISTRIBUTION WIDTH 15.4 % (11.6-16.5); WHITE BLOOD COUNT 14.7 X10^3/uL (3.6-10.0)
[2019-01-13 05:42] LABS: ALANINE AMINOTRANSFERASE 14 Units/L (12-78); ALBUMIN 2.3 g/dL (3.4-5.0); ALKALINE PHOSPHATASE 107 Units/L (46-116); ASPARTATE AMINO TRANSFERASE 17 Units/L (15-37); BLOOD UREA NITROGEN 10 mg/dL (7-18); CALCIUM 7.9 mg/dL (8.5-10.1); CARBON DIOXIDE 27.1 mmol/L (21-32); CHLORIDE 94 mmol/L (98-107); COR CA(FOR HYPOALB) 9.3 mg/dL (8.5-10.1); CREATININE 1.53 mg/dL (0.70-1.30); SODIUM 132 mmol/L (136-145); TOTAL PROTEIN 7.1 g/dL (6.4-8.2); eGFR NON BLACK RACES 50 (>60)
[2019-01-13] MEDS: MAG-OX TAB PO SCH ×2 (06:10→19:11)
[2019-01-13] MEDS: VANCOMYCIN HCL 1 G in D5W 250 ML IV 250 ML IV SCH ×2 (08:42→21:29)
[2019-01-13] MEDS: ZYLOPRIM PO SCH (08:43)
[2019-01-13] MEDS: K-LYTE EFFERVESCENT PO SCH (08:43)
[2019-01-13] MEDS: BRILINTA PO SCH ×2 (09:28→21:01)
[2019-01-13] MEDS: MILK OF MAGNESIA PO SCH ×3 (09:28→21:01)
[2019-01-13] MEDS: NORCO 10/325 TAB PO PRN ×2 (14:45→21:04)
[2019-01-13] MEDS ORDERED: SOLU-Medrol 40 MG VIAL IVP ONE ×2 (16:32→18:30)
[2019-01-13 20:59] LABS: CREATININE 1.5 mg/dL (0.70-1.30)
[2019-01-13] MEDS: COLACE CAP 100 MG PO SCH (21:02)
[2019-01-13 21:03] LABS: VANCOMYCIN,TROUGH 21.3 ug/mL (15-20)
[2019-01-14] MEDS: GENTAMICIN SULF (OPHTH) AFFEYE SCH ×4 (03:05→20:34)
[2019-01-14] MEDS: NORCO 10/325 TAB PO PRN ×3 (03:05→16:39)
[2019-01-14] MEDS: NS + KCL 40 MEQ/L 1,000 ML IV SCH ×2 (06:01→07:28)
[2019-01-14] MEDS: MAG-OX TAB PO SCH ×2 (06:01→16:39)
[2019-01-14 06:24] LABS: BASOPHILS % (AUTO) 0.2 % (0.2-1.0); HEMATOCRIT 35.5 % (42.0-54.0); HEMOGLOBIN 12.1 g/dL (13.5-18.0); LYMPHOCYTES # (AUTO) 0.8 X10^3/uL (1.3-2.9); LYMPHOCYTES % (AUTO) 5.9 % (21.0-51.0); MEAN CORPUSCULAR HEMOGLOBIN 31.9 pg (27.0-34.0); MEAN CORPUSCULAR HGB CONC 34.1 g/dL (33.0-35.0); MEAN CORPUSCULAR VOLUME 93.3 fL (80.0-100.0); MEAN PLATELET VOLUME 6.9 fL (7.4-11.0); MONOCYTES # (AUTO) 0.2 x10^3/uL (0.3-0.8); MONOCYTES % (AUTO) 1.2 % (0.0-13.0); NEUTROPHILS # (AUTO) 12.6 x10^3/uL (2.2-4.8); NEUTROPHILS % (AUTO) 92.7 % (42.0-75.0); PLATELET COUNT 317 X10^3/uL (150.0-450.0); RED CELL DISTRIBUTION WIDTH 15.4 % (11.6-16.5); WHITE BLOOD COUNT 13.6 X10^3/uL (3.6-10.0)
[2019-01-14 06:34] LABS: ALBUMIN 2.1 g/dL (3.4-5.0); CALCIUM 8.3 mg/dL (8.5-10.1); COR CA(FOR HYPOALB) 9.8 mg/dL (8.5-10.1); CREATININE 1.55 mg/dL (0.70-1.30); MAGNESIUM 2.1 mg/dL (1.7-2.9)
[2019-01-14 06:52] LABS: BAND NEUTROPHILS % 4 % (0-10); PLATELET MORPHOLOGY COMMENT NORMAL (NORMAL)
[2019-01-14] MEDS ORDERED: VANCOMYCIN HCL ONE ×2 (07:39→07:40)
[2019-01-14] MEDS ORDERED: D5W 250 ML IV 250 ML ONE (07:40)
[2019-01-14] MEDS ORDERED: TUMS PO PRN (08:09)
[2019-01-14] MEDS ORDERED: TUMS ONE (08:10)
[2019-01-14] MEDS: BRILINTA PO SCH ×2 (09:02→20:33)
[2019-01-14] MEDS: K-LYTE EFFERVESCENT PO SCH (09:03)
[2019-01-14] MEDS: VANCOMYCIN HCL 1 G in D5W 250 ML IV 250 ML IV SCH (09:03)
[2019-01-14] MEDS: VANCOMYCIN HCL 500 MG, VANCOMYCIN HCL 1 G in NS 250 ML IV 250 ML IV SCH (09:03)
[2019-01-14] MEDS: ZYLOPRIM PO SCH (09:03)
[2019-01-14] MEDS: MILK OF MAGNESIA PO SCH ×2 (09:04→20:33)
[2019-01-14] MEDS: NS + KCL 20 MEQ/L 1,000 ML IV SCH (12:46)
[2019-01-14] MEDS ORDERED: MAALOX or MYLANTA PO PRN (13:49)
[2019-01-14] MEDS ORDERED: MAALOX or MYLANTA ONE (13:50)
[2019-01-14] MEDS: COLACE CAP 100 MG PO SCH (20:34)
[2019-01-15] MEDS: NS + KCL 20 MEQ/L 1,000 ML IV SCH (00:08)
[2019-01-15] MEDS: GENTAMICIN SULF (OPHTH) AFFEYE SCH ×2 (02:20→08:54)
[2019-01-15] MEDS: MAG-OX TAB PO SCH (06:01)
[2019-01-15 06:39] LABS: BASOPHILS % (AUTO) 0.2 % (0.2-1.0); EOSINOPHILS % (AUTO) 0.1 % (0.9-2.9); HEMATOCRIT 37.6 % (42.0-54.0); HEMOGLOBIN 12.7 g/dL (13.5-18.0); LYMPHOCYTES # (AUTO) 2.9 X10^3/uL (1.3-2.9); LYMPHOCYTES % (AUTO) 14.3 % (21.0-51.0); MEAN CORPUSCULAR HEMOGLOBIN 31.6 pg (27.0-34.0); MEAN CORPUSCULAR HGB CONC 33.7 g/dL (33.0-35.0); MEAN CORPUSCULAR VOLUME 93.9 fL (80.0-100.0); MEAN PLATELET VOLUME 6.7 fL (7.4-11.0); MONOCYTES # (AUTO) 1.1 x10^3/uL (0.3-0.8); MONOCYTES % (AUTO) 5.4 % (0.0-13.0); NEUTROPHILS # (AUTO) 16.3 x10^3/uL (2.2-4.8); PLATELET COUNT 461 X10^3/uL (150.0-450.0); RED CELL DISTRIBUTION WIDTH 15.4 % (11.6-16.5); WHITE BLOOD COUNT 20.4 X10^3/uL (3.6-10.0)
[2019-01-15 06:57] LABS: ALBUMIN 2.4 g/dL (3.4-5.0); CALCIUM 8.9 mg/dL (8.5-10.1); CARBON DIOXIDE 22.1 mmol/L (21-32); COR CA(FOR HYPOALB) 10.2 mg/dL (8.5-10.1); CREATININE 1.61 mg/dL (0.70-1.30); TOTAL PROTEIN 7.2 g/dL (6.4-8.2)
[2019-01-15] MEDS ORDERED: D5W 250 ML IV 250 ML IV ONE (07:45)
[2019-01-15] MEDS ORDERED: VANCOMYCIN HCL ONE ×2 (07:45)
[2019-01-15] MEDS: BRILINTA PO SCH (08:53)
[2019-01-15] MEDS: K-LYTE EFFERVESCENT PO SCH (08:54)
[2019-01-15] MEDS: VANCOMYCIN HCL 500 MG, VANCOMYCIN HCL 1 G in NS 250 ML IV 250 ML IV SCH (08:55)
[2019-01-15] MEDS: MILK OF MAGNESIA PO SCH (08:55)
[2019-01-15] MEDS: ZYLOPRIM PO SCH (08:56)
[2019-01-15 10:03] VITALS: BP 136/68
[2019-01-17] MEDS ORDERED: PHARMACY COMMENT IV NR (08:30)
== END 2019-01-15 10:45 | disposition home or self-care (01) | DRG 603 ==
LOC: ER 11:03 → MED/SURG 11:03 → OBSVTOIN 16:17 → MED/SURG 17:24
PROVIDERS: ADMIT Internal Medicine; ATTEND Internal Medicine
DX: M10.9 Gout, unspecified; M51.36 Other intervertebral disc degeneration, lumbar region; M79.89 Other specified soft tissue disorders; I25.10 Atherosclerotic heart disease of native coronary artery without angina pectoris; R53.1 Weakness; Z86.73 Personal history of transient ischemic attack (TIA), and cerebral infarction without residual deficits; L03.115 Cellulitis of right lower limb; R26.81 Unsteadiness on feet; N28.9 Disorder of kidney and ureter, unspecified; Y93.9 Activity, unspecified; W19.XXXA Unspecified fall, initial encounter; E87.6 Hypokalemia; I10 Essential (primary) hypertension; Y92.9 Unspecified place or not applicable
CPT/HCPCS: 36415; 71010; 71045; 72220; 73560; 73630; 80053; 80202; 81003; 82270; 82565; 83630; 83735; 84132; 84550; 85025; 87040; 93971; 96365; 96367; 96374; 97162; 97165; 99221; 99284; A4222; J2920; J3370; J7050; J7060; J8499